=== PATIENT | male | born 1975 | race Caucasian/White ===

== ENCOUNTER → 2023-09-09 16:35 | Outpatient (REF) | payer BC, SELFPAY | LOC: RAD 16:35 | PROVIDERS: ATTENDING PHYSICIAN Orthopaedic Surgery | DX: S05.50XA Penetrating wound with foreign body of unspecified eyeball, initial encounter (principal) | CPT/HCPCS: 70030 ==

== ENCOUNTER → 2024-01-05 14:13 | Outpatient (REF) | payer BC, SELFPAY | LOC: HWRAD 14:13 | PROVIDERS: ATTENDING PHYSICIAN Nurse Practitioner | DX: N50.812 Left testicular pain (principal); N50.89 Other specified disorders of the male genital organs | CPT/HCPCS: 76870; 93976 ==